=== PATIENT | female | born 1930 | race Caucasian/White ===

== ENCOUNTER 2017-02-02 18:34 | Inpatient (IN) | payer MEDICARE, OTHER ==
[~2017-02-02] VITALS: Ht 160 cm; Wt 62.8 kg
[~2017-02-02 18:34] MED LIST: ASPI-664 PO; CLON-379 PO; HYDR-3671 PO; LORA0.5T PO; METF500T4 PO
[2017-02-02] MEDS ORDERED: SODIUM CHLORIDE 0.9% 1L BAG IV* STA (18:58)
[2017-02-02] MEDS ORDERED: CEFEPIME 2GM/50 ML (PMX) 50 ML IVPB STA (18:58)
[2017-02-02] MEDS ORDERED: VANCOMYCIN 1 GM (PMX) 250 ML IVPB ONE (19:00)
[2017-02-02] MEDS ORDERED: ACETAMINOPHEN 325 MG TAB PO ONE (19:00)
[2017-02-02 19:29] LABS: ADD SCAN DIFF NO
[2017-02-02 19:30] LABS: BASOPHILS % 0.2 % (0.0-2.0); EOSINOPHILS % 0.1 % (0.0-7.0); HEMATOCRIT 38.6 % (37.0-47.0); HEMOGLOBIN 13.1 g/dl (12.0-16.0); LYMPHOCYTES % 29.2 % (15.0-51.0); MEAN CORPUSCULAR HEMOGLOBIN 29.2 pg (29.0-33.0); MEAN CORPUSCULAR HGB CONC 33.9 g/dl (32.0-37.0); MONOCYTES % 7.5 % (0.0-11.0); NEUTROPHIL # 8.6 10^3/ul (1.6-7.5); NEUTROPHILS % 62.5 % (39.0-77.0); PLATELET COUNT 346 10^3/UL (140-415); RED BLOOD COUNT 4.49 10^6/ul (4.20-5.40); RED CELL DISTRIBUTION WIDTH 13.1 % (11.5-14.5); WHITE BLOOD COUNT 13.7 10^3/ul (4.8-10.8)
[2017-02-02 19:44] LABS: ALBUMIN 4.1 g/dl (3.3-4.9)
[2017-02-02 19:45] LABS: CHLORIDE 95 mmol/L (97-110); POTASSIUM 3.3 mmol/L (3.5-5.1); SODIUM 136 mmol/L (135-144)
[2017-02-02 19:46] LABS: INR 0.96; PROTIME 12.8 Sec (12.2-14.2)
[2017-02-02 19:47] LABS: ANION GAP 17 (8-16); BILIRUBIN,INDIRECT 0.3 mg/dl (0-1.1); BILIRUBIN,TOTAL 0.3 mg/dl (0.2-1.3); CARBON DIOXIDE 27 mmol/L (21-31); CREATININE 1.02 mg/dl (0.44-1.00); PARTIAL THROMBOPLASTIN TIME 33.3 Sec (25.0-35.0)
[2017-02-02 19:48] LABS: ALANINE AMINOTRANSFERASE 21 IU/L (13-69); ALBUMIN/GLOBULIN RATIO 0.97; ALKALINE PHOSPHATASE 60 IU/L (42-121); ASPARTATE AMINO TRANSFERASE 17 IU/L (15-46); BLOOD UREA NITROGEN 19 mg/dl (7-20); CALCIUM 9.9 mg/dl (8.4-10.2); GLUCOSE 147 mg/dl (70-220); TOTAL PROTEIN 8.3 g/dl (6.1-8.1)
[2017-02-02] MEDS ORDERED: HYDR100T7 PO (19:49)
[2017-02-02] MEDS ORDERED: METF-480 PO (19:49)
[2017-02-02] MEDS ORDERED: AMLO-147 PO (19:49)
[2017-02-02] MEDS ORDERED: DEXL60CA2 PO (19:50)
[2017-02-02] MEDS ORDERED: VALS320T11 PO (19:50)
--- NOTE | 2017-02-02 19:55 | RADRPT ---
PROCEDURE: XR Chest. CLINICAL INDICATION: Possible sepsis. TECHNIQUE: Single frontal view of the chest. COMPARISON: 01/24/2015. FINDINGS: Cardiomegaly with atherosclerotic calcifications in the thoracic aorta. Hypoinflated lungs accentua te pulmonary vascular markings. Mild pulmonary vascular congestion. The lungs are otherwise clear. No signs of pleural fluid or pneumothorax are seen. The osseous structures and soft tissues are unr emarkable. IMPRESSION: Mild pulmonary vascular congestion. RPTAT: [facility] Physician Ekaterina Date Time Electronically viewed and signed by Physician Ekaterina on 02/02/2017 19:55 RS/
[2017-02-02 19:59] LABS: TROPONIN-I < 0.012 ng/ml (0.00-0.12)
--- NOTE | 2017-02-02 20:59 | RADRPT ---
PROCEDURE: CT Abdomen and Pelvis without contrast. CLINICAL INDICATION: Abdominal pain, fever TECHNIQUE: CT scan of the abdomen and pelvis without contrast was performed on a multidetector hig h-resolution CT scanner. The patient was scanned without intravenous contrast. Coronal and sagittal reformatted images were obtained from the axial source images. Images were reviewed on a high-resol [employer] PACS workstation. The total exam CTDI equals 9.39 mGy and the total exam DLP equals 464.11 mGy -cm. One or more the following dose reduction techniques were utilized: Automated exposure control, adjus tment of the mA/ or kV according to patient's size, or use of iterative reconstruction technique. COMPARISON: None. FINDINGS: CT abdomen: Linear atelectasis/fibrosis at lung bases. Mild cardiomegaly. Calcification in thoracic aorta. Pne umobilia likely secondary to previous intervention. Mild scalloping of the liver margin suggestive o f cirrhosis. The spleen is normal in size and homogeneous in density. The stomach is partially col lapsed, but is grossly unremarkable. Atrophic changes in the pancreas. Pneumobilia in the extrahepa tic bile duct. No gallbladder is seen. The adrenal glands are symmetric and normal. The kidneys ar e symmetrically unremarkable. No renal calculus or obstructive uropathy or mass lesion is seen. The aorta is of normal caliber. Aortic vascular calcifications are present. Calcification in superi or mesenteric, bilateral renal and iliac and femoral arteries There is no retroperitoneal lymphadeno prieto. The deep hepatis region is clear. The bowel and mesentery, as visualized, are unremarkable . CT pelvis: The small bowel loops situated within the pelvis are unremarkable. Vascular calcifications in the u terus. The pelvic sidewalls and inguinal regions are clear. The sigmoid colon and rectum are unrema rkable. No mass, lymphadenopathy, or free fluid is seen. No acute inflammation is seen. The surrounding osseous structures are remarkable for degenerative spondylosis of the spine. Spinal stenosis in thoracolumbar spine. Diffuse osteopenia. Degenerative changes at sacroiliac joints. Co mpression fracture apparent L1 vertebral body with loss of approximate 1/3 height of the anterior as pect of vertebral body and Schmorl's node in the superior vertebral body. Additional smaller Schmorl 's nodes are seen in the lumbar spine. IMPRESSION: Pneumobilia likely secondary to previous intervention. Suggestive of cirrhosis. Mild cardiomegaly. Atherosclerosis. Please see above. RPTAT: HJES .Lenin Egan MD, Date Time Electronically viewed and signed by .Lenin Egan MD, on 02/02/2017 20:59 .S/
[2017-02-02] MEDS ORDERED: ACETAMINOPHEN 325 MG TAB PO PRN (21:30)
[2017-02-02] MEDS ORDERED: ONDANSETRON 4 MG INJ IV PRN (21:30)
[2017-02-02 21:45] LABS: ADD UMIC NO; URINE BILIRUBIN (Dip) NEGATIVE (NEGATIVE); URINE BLOOD (Dip) NEGATIVE (NEGATIVE); URINE COLOR LT. YELLOW (YELLOW); URINE GLUCOSE (Dip) NEGATIVE (NEGATIVE); URINE KETONES (Dip) NEGATIVE (NEGATIVE); URINE LEUKOCYTE ESTERASE (Dip) NEGATIVE (NEGATIVE); URINE NITRITE (Dip) NEGATIVE (NEGATIVE); URINE TOTAL PROTEIN (Dip) NEGATIVE (NEGATIVE); URINE UROBILINOGEN (Dip) 0.2 E.U./dL (0.1-1.0)
--- NOTE | 2017-02-02 21:51 | ERA ---
ER Documentation Chief Complaint Date/Time DATE: 02/02/17 TIME: 21:46 Chief Complaint fever, chest pain, sob, n/v and luq abd pain since yesterday HPI Patient is a 86-year-old female with hypertension and diabetes who presents with fever and abdominal pain. She has right upper and right lower quadrant abdominal pain which started last night. She has vomiting. She has a history of cholecystectomy. She has had no treatment as of yet. Upon review of old medical records this is the patient's sixth visit to the ER since 2010. She does have a primary doctor. ROS All systems reviewed and are negative except as per history of present illness. Medications Home Meds Reported Medications Dexlansoprazole (Dexilant) 60 Mg Cap., 60 MG PO DAILY, #30 CAP 02/02/17 Valsartan* (Diovan*) 320 Mg Tablet, 320 MG PO DAILY, TAB 02/02/17 Amlodipine Besylate* (Amlodipine Besylate*) 10 Mg Tablet, 10 MG PO DAILY, #30 TAB 02/02/17 Metformin* (Glucophage*) 850 Mg Tablet, 850 MG PO WITH BREAKFAST DINNE, #60 TAB 02/02/17 Hydralazine Hcl* (Hydralazine Hcl*) 100 Mg Tablet, 100 MG PO TID, #90 TAB 02/02/17 Lorazepam* (Lorazepam*) 0.5 Mg Tablet, 0.5 MG PO DAILY Y for ANXIETY, TAB 01/29/15 Clonidine Hcl* (Clonidine Hcl*) 0.1 Mg Tab, 0.1 MG PO BID, TAB 01/24/15 Aspirin (Low Dose Aspirin) 81 Mg Tablet., 81 MG PO DAILY 01/24/15 Discontinued Reported Medications Hydralazine Hcl* (Hydralazine Hcl*) 25 Mg Tab, 25 MG PO TID, TAB 01/24/15 Metformin* (Glucophage*) 500 Mg Tab, 850 MG PO BID WITH MEALS, TAB 01/24/15 Allergies Allergies: Coded Allergies: No Known Drug Allergies (Verified Allergy, Mild, 02/02/17) PMhx/Soc History of Surgery: Yes (GALL BLADDER REMOVE) Anesthesia Reaction: No Hx Neurological Disorder: No Hx Respiratory Disorders: No Hx Cardiac Disorders: Yes (HTN) Hx Psychiatric Problems: No Hx Miscellaneous Medical Probl: Yes (DM) Hx Alcohol Use: No Hx Substance Use: No Hx Tobacco Use: No Smoking Status: Never smoker FmHx Family History: No diabetes Physical Exam Vitals Vital Signs Date Time Temp Pulse Resp B/P Pulse Ox O2 Delivery O2 Flow Rate FiO2 02/02/17 21:00 97.6 73 20 189/62 100 Room Air 02/02/17 18:43 101.3 101 20 145/65 98 Physical Exam Const: Moderate distress Head: Atraumatic Eyes: Normal Conjunctiva ENT: Normal External Ears, Nose and Mouth. Neck: Full range of motion..~ No meningismus. Resp: Clear to auscultation bilaterally Cardio: Tachycardic rate without murmur Abd: Soft, right upper and right lower quadrant tenderness to palpation without guarding Skin: No petechiae or rashes Back: No midline or flank tenderness Ext: No cyanosis, or edema Neur: Awake and alert Psych: Normal Mood and Affect Result Diagram: 02/02/17190202/02/171902 Results 24 hrs Laboratory Tests Test 02/02/17 19:03 02/02/17 21:35 White Blood Count 13.710^3/ul Red Blood Count 4.4910^6/ul Hemoglobin 13.1g/dl Hematocrit 38.6% Mean Corpuscular Volume 86.0fl Mean Corpuscular Hemoglobin 29.2pg Mean Corpuscular Hemoglobin Concent 33.9g/dl Red Cell Distribution Width 13.1% Platelet Count 98175^3/UL Mean Platelet Volume 11.0fl Neutrophils % 62.5% Lymphocytes % 29.2% Monocytes % 7.5% Eosinophils % 0.1% Basophils % 0.2% Nucleated Red Blood Cells % 0.0/100WBC Neutrophils # 8.610^3/ul Lymphocytes # 4.010^3/ul Monocytes # 1.010^3/ul Eosinophils # 0.010^3/ul Basophils # 0.010^3/ul Nucleated Red Blood Cells # 0.010^3/ul Prothrombin Time 12.8Sec Prothrombin Time Ratio 1.0 INR International Normalized Ratio 0.96 Activated Partial Thromboplast Time 33.3Sec Sodium Level 136mmol/L Potassium Level 3.3mmol/L Chloride Level 95mmol/L Carbon Dioxide Level 27mmol/L Anion Gap 17 Blood Urea Nitrogen 19mg/dl Creatinine 1.02mg/dl Glucose Level 147mg/dl Lactic Acid Level 1.1mmol/L Calcium Level 9.9mg/dl Total Bilirubin 0.3mg/dl Direct Bilirubin 0.00mg/dl Indirect Bilirubin 0.3mg/dl Aspartate Amino Transf (AST/SGOT) 17IU/L Alanine Aminotransferase (ALT/SGPT) 21IU/L Alkaline Phosphatase 60IU/L Troponin I < 0.012ng/ml Total Protein 8.3g/dl Albumin 4.1g/dl Globulin 4.20g/dl Albumin/Globulin Ratio 0.97 Urine Color LT. YELLOW Urine Clarity CLEAR Urine pH 6.0 Urine Specific [place] <=1.005 Urine Ketones NEGATIVE Urine Nitrite NEGATIVE Urine Bilirubin NEGATIVE Urine Urobilinogen 0.2 E.U./dL Urine Leukocyte Esterase NEGATIVE Urine Hemoglobin NEGATIVE Urine Glucose NEGATIVE% Urine Total Protein NEGATIVE Current Medications Medications (Trade) Dose Ordered Sig/Mari Route PRN Reason Start Time Stop Time Status Last Admin Dose Admin Sodium Chloride 1970 ml 1,970 ml BOLUS OVER 2 HOURS STAT IV* 02/02/17 18:58 02/02/17 18:59 DC 02/02/17 19:29 Cefepime HCl 50 ml @ 100 mls/hr ONCE STAT IVPB 02/02/17 18:58 02/02/17 19:27 DC 02/02/17 19:29 Vancomycin HCl (Vancocin) 250 ml @ 125 mls/hr ONCE ONCE IVPB 02/02/17 19:00 02/02/17 20:59 DC 02/02/17 20:52 Acetaminophen (Tylenol Tab) 650 mg ONCE ONCE PO 02/02/17 19:00 02/02/17 19:01 DC 02/02/17 19:29 Ondansetron HCl (Zofran Inj) 4 mg BRIDGE ORDER PRN IV NAUSEA AND/OR VOMITING 02/02/17 21:30 02/03/17 21:29 Acetaminophen (Tylenol Tab) 650 mg ER BRIDGE PRN PO MILD PAIN/FEVER 02/02/17 21:30 02/03/17 21:29 Procedures/MDM PROCEDURE: CT Abdomen and Pelvis without contrast. CLINICAL INDICATION: Abdominal pain, fever TECHNIQUE: CT scan of the abdomen and pelvis without contrast was performed on a multidetector high-resolution CT scanner. The patient was scanned without intravenous contrast. Coronal and sagittal reformatted images were obtained from the axial source images. Images were reviewed on a high-resolution PACS workstation. The total exam CTDI equals 9.39 mGy and the total exam DLP equals 464.11 mGy-cm. One or more the following dose reduction techniques were utilized: Automated exposure control, adjustment of the mA/ or kV according to patient's size, or use of iterative reconstruction technique. COMPARISON: None. FINDINGS: CT abdomen: Linear atelectasis/fibrosis at lung bases. Mild cardiomegaly. Calcification in thoracic aorta. Pneumobilia likely secondary to previous intervention. Mild scalloping of the liver margin suggestive of cirrhosis. The spleen is normal in size and homogeneous in density. The stomach is partially collapsed, but is grossly unremarkable. Atrophic changes in the pancreas. Pneumobilia in the extrahepatic bile duct. No gallbladder is seen. The adrenal glands are symmetric and normal. The kidneys are symmetrically unremarkable. No renal calculus or obstructive uropathy or mass lesion is seen. The aorta is of normal caliber. Aortic vascular calcifications are present. Calcification in superior mesenteric, bilateral renal and iliac and femoral arteries There is no retroperitoneal lymphadenopathy. The deep hepatis region is clear. The bowel and mesentery, as visualized, are unremarkable. CT pelvis: The small bowel loops situated within the pelvis are unremarkable. Vascular calcifications in the uterus. The pelvic sidewalls and inguinal regions are clear. The sigmoid colon and rectum are unremarkable. No mass, lymphadenopathy , or free fluid is seen. No acute inflammation is seen. The surrounding osseous structures are remarkable for degenerative spondylosis of the spine. Spinal stenosis in thoracolumbar spine. Diffuse osteopenia. Degenerative changes at sacroiliac joints. Compression fracture apparent L1 vertebral body with loss of approximate 1/3 height of the anterior aspect of vertebral body and Schmorl's node in the superior vertebral body. Additional smaller Schmorl's nodes are seen in the lumbar spine. IMPRESSION: Pneumobilia likely secondary to previous intervention. Suggestive of cirrhosis. Mild cardiomegaly. Atherosclerosis. Please see above. RPTAT: HJES .Lenin Egan MD, MD Date Time Electronically viewed and signed by .Lenin Egan MD, on 02/02/2017 20:59 PROCEDURE: XR Chest. CLINICAL INDICATION: Possible sepsis. TECHNIQUE: Single frontal view of the chest. COMPARISON: 01/24/2015. FINDINGS: Cardiomegaly with atherosclerotic calcifications in the thoracic aorta. Hypoinflated lungs accentuate pulmonary vascular markings. Mild pulmonary vascular congestion. The lungs are otherwise clear. No signs of pleural fluid or pneumothorax are seen. The osseous structures and soft tissues are unremarkable. IMPRESSION: Mild pulmonary vascular congestion. RPTAT: [facility] Physician Ekaterina Date Time Electronically viewed and signed by Physician Ekaterina on 02/02/2017 19:55 EKG read by me: Rate/Rhythm: First-degree AV block at a rate of 92 Intervals: Prolonged [place] interval Impression: First-degree AV block Admit MDM: Patient's infectious symptoms have not stabilized and the patient is at risk of rapid decompensation. The patient will be admitted for careful hydration, antibiotic therapy, and infectious source control. Severe Sepsis criteria: Infectious source: Unclear source at this time End organ damage indicated by: No end organ damage at this time Sepsis Management: Time of recognition of sepsis: 1903 Within 3 hours of recognition: Blood cultures x 2 before broad-spectrum antibiotics: Yes 30 ml/kg NS bolus Completed Initial lactate normal Repeat lactate pending Time of recognition of septic shock: No septic shock Septic Shock Assessment: Any lactic acid > 4.0 No Persistent hypotension (SBP < 90 or 40 mmHg drop, MAP < 65) despite 30 mL/kg IV fluid bolus No Volume Re-assessment for Septic Shock (post 30 ml/kg bolus): No septic shock at this time Persistent Hypotension Treatment: Comfort care No Central line Not Required Vasopressor started Not required I considered further perfusion assessment with CVP measurement, SCVO2, bedside ultrasound volume assessment, passive leg raise, trial of further fluid bolus. And proceeded with 30 ml/kg fluid bolus of NSS, broad spectrum antibiotics, and admission. Accepting Care Team Current data and ongoing care discussed. Admitting Physician: Dr. Ferguson from the panel team for admission Diesel Engine Engineer(s): None Outstanding Data: Culture results and repeat lactic acid Critical Care: Critical care time 35 minutes excluding all billable procedures Emergent fluid management while maintaining close respiratory support. Provision of immediate and broad-spectrum antibiotic therapy. Simultaneous assessment for possible sources in order to direct targeted therapy. Consideration for invasive and chemical support to prevent cardiopulmonary collapse. Departure Diagnosis: Primary Impression: Shortness of breath Additional Impressions: Abdominal pain Qualified Code: R10.84 - Generalized abdominal pain Fever Qualified Code: R50.9 - Fever, unspecified fever cause Leukocytosis Qualified Code: D72.829 - Leukocytosis, unspecified type Sepsis Qualified Code: A41.9 - Sepsis, due to unspecified organism Condition: NORAH Cavazos MD February 02, 2017 21:51
[2017-02-02] MEDS ORDERED: hydrALAzine 20 MG INJ IV ONE (22:00)
[2017-02-02 23:00] VITALS: TEMP 97.6
[2017-02-03 00:59] VITALS: Ht 160 cm; Wt 62.8 kg
[2017-02-03] MEDS ORDERED: DEXTROSE 50% 50 ML SYRINGE IV PRN ×2 (01:00)
[2017-02-03] MEDS ORDERED: LORAZEPAM 0.5 MG TAB PO PRN (01:00)
[2017-02-03] MEDS ORDERED: LORAZEPAM 2 MG INJ IV PRN (01:00)
[2017-02-03] MEDS ORDERED: GLUCOSE GEL 15 GRAM TUBE BUCCAL PRN (01:00)
[2017-02-03] MEDS ORDERED: hydrALAzine 20 MG INJ IV PRN (01:00)
[2017-02-03] MEDS ORDERED: ONDANSETRON 4 MG INJ IV PRN (01:00)
[2017-02-03] MEDS ORDERED: ACETAMINOPHEN 325 MG TAB PO PRN (01:00)
[2017-02-03] MEDS ORDERED: GLUCOSE GEL 15 GRAM TUBE PO PRN ×2 (01:00)
[2017-02-03] MEDS ORDERED: GLUCAGON 1 MG INJ IM PRN (01:00)
[2017-02-03] MEDS: LEVOFLOXACIN 500MG/D5W (PMX) 100 ML IVPB SCH (01:20)
[2017-02-03] MEDS: ACCU-CHEK XX SCH (01:25)
[2017-02-03 01:34] VITALS: BP 204/81; PULSE 97; RESP 18
[2017-02-03] MEDS ORDERED: ACCU-CHEK XX SCH (02:00)
[2017-02-03 06:10] VITALS: BP 145/63; PULSE 78
[2017-02-03 06:30] LABS: ADD SCAN DIFF NO
[2017-02-03 06:36] LABS: BASOPHILS % 0.2 % (0.0-2.0); EOSINOPHILS % 0.1 % (0.0-7.0); HEMATOCRIT 37.1 % (37.0-47.0); HEMOGLOBIN 12.2 g/dl (12.0-16.0); LYMPHOCYTES # 1.3 10^3/ul (0.8-2.9); MEAN CORPUSCULAR HEMOGLOBIN 29.3 pg (29.0-33.0); MEAN CORPUSCULAR HGB CONC 32.9 g/dl (32.0-37.0); MEAN PLATELET VOLUME 11.1 fl (7.4-10.4); MONOCYTE # 0.5 10^3/ul (0.3-0.9); MONOCYTES % 5.4 % (0.0-11.0); NEUTROPHIL # 6.7 10^3/ul (1.6-7.5); NEUTROPHILS % 78.9 % (39.0-77.0); PLATELET COUNT 307 10^3/UL (140-415); RED BLOOD COUNT 4.17 10^6/ul (4.20-5.40); RED CELL DISTRIBUTION WIDTH 13.2 % (11.5-14.5); WHITE BLOOD COUNT 8.5 10^3/ul (4.8-10.8)
[2017-02-03 06:54] LABS: ALBUMIN 3.6 g/dl (3.3-4.9); BILIRUBIN,INDIRECT 0.4 mg/dl (0-1.1); BILIRUBIN,TOTAL 0.4 mg/dl (0.2-1.3); CALCIUM 9.1 mg/dl (8.4-10.2); CREATININE 0.92 mg/dl (0.44-1.00); MAGNESIUM 1.7 mg/dl (1.7-2.5); POTASSIUM 3.4 mmol/L (3.5-5.1); TOTAL PROTEIN 7.2 g/dl (6.1-8.1)
[2017-02-03 07:59] VITALS: BP 147/67; RESP 18
[2017-02-03] MEDS: FAMOTIDINE 20 MG TAB PO SCH (09:16)
[2017-02-03] MEDS: AMLODIPINE 10 MG TAB PO SCH (09:16)
[2017-02-03] MEDS: VALSARTAN 160 MG TAB PO SCH (09:16)
[2017-02-03] MEDS: ASPIRIN (EC) 81 MG TAB PO SCH (09:17)
[2017-02-03] MEDS: INSULIN ASPART [NOVOLOG] 3 ML PEN SC SCH ×4 (09:18→20:32)
[2017-02-03] MEDS: INSULIN GLARGINE [LANtus] 3 ML PEN SC SCH (09:20)
--- NOTE | 2017-02-03 12:12 | HP ---
Date/Time of Note Date/Time of Note DATE: 02/03/17 TIME: 12:05 Assessment/Plan VTE Prophylaxis VTE Prophylaxis Intervention: SCD's Lines/Catheters IV Catheter Type (from Nrsg): Saline Lock Assessment/Plan Assessment/Plan IMPRESSION 1. Abd Pain 2. SIRS, with no clear source of infection 3. HTN 4. DM 5. Hx of cholangitis and Choledocholithiasis 6. s/p cholecystectomy PLAN broad spectrum abx f/u blood and urine culture results pain mgmt cont home meds with adjustment as needed Insulin while in-house HPI/ROS Admit Date/Time Admit Date/Time February 02, 2017 at 21:07 Hx of Present Illness Patient is an 86-year-old female with hx of HTN, DM, DL, cholangitis/ choledocholithiasis, cholecystectomy who presents to ER c/o abdominal pain. Pain is mainly localized in RUQ area. she also reported fever and nausea. In ER , she had a temp of 101.8 with WBC of almost 14,000. CXR showed mild pulm vascular congestion. CT a/p showed Pneumobilia likely secondary to previous intervention, and findings uggestive of cirrhosis. Mild cardiomegaly. UA was neg for UTI. . PMH/Family/Social Social History Smoking Status: Never smoker Exam/Review of Systems Vital Signs Vitals Vital Signs Date Time Temp Pulse Resp B/P Pulse Ox O2 Delivery O2 Flow Rate FiO2 02/03/17 07:59 97.9 70 18 147/67 97 02/03/17 01:34 Room Air Intake and Output 02/02/17 02/02/17 02/03/17 15:00 23:00 07:00 Intake Total 220 ml Balance 220 ml Exam Exam General: The patient is well-developed, Not in acute distress. HEENT: Atraumatic, normocephalic. The pupils are equal and round . Neck: Supple with full range of motion. Chest: Normal expansion of the thorax during inspiration Lungs: Clear to auscultation bilaterally Heart: Normal S1-S2, Regular rhythm and rate. Abdomen: Soft , nontender, nondistended , bowel sounds are present. Extremities: Normal to inspection, no edema no cyanosis Neurologic: Normal mental status,The patient is awake Labs Result Diagram: 02/03/1752902/03/17529 Medications Medications Current Medications Levofloxacin/ Dextrose (Levaquin 500mg/ D5W 100 ml (Pmx)) 100 ml @ 100 mls/hr Q24H IVPB Last administered on 02/03/17 01:20; Admin Dose 100 MLS/HR; Start at 01:00 Insulin Glargine (Lantus) 10 unit QAM SC Last administered on 02/03/17 09:20; Admin Dose 10 UNIT; Start 02/03/17 at 09:00 Diagnostic Test (Pha) (Accu-Chek) 1 ea 02 XX ; Start 02/03/17 at 02:00 Ondansetron HCl (Zofran Inj) 4 mg Q6H PRN IV NAUSEA AND/OR VOMITING; Start 09/10 at 01:00 Acetaminophen (Tylenol Tab) 650 mg Q6H PRN PO PAIN AND OR ELEVATED TEMP; Start 02/03/17 at 01:00 Hydralazine HCl (Apresoline) 10 mg Q4H PRN IV ELEVATED SYSTOLIC BP; Start 02/03 at 01:00 Lorazepam (Ativan) 0.5 mg Q4H PRN IV ANXIETY; Start 02/03/17 at 01:00 Famotidine (Pepcid) 20 mg DAILY PO Last administered on 02/03/17 09:16; Admin Dose 20 MG; Start 02/03/17 at 09:00 Amlodipine Besylate (Norvasc) 10 mg DAILY PO Last administered on 02/03/17 09: 16; Admin Dose 10 MG; Start 02/03/17 at 09:00 Aspirin (Halfprin) 81 mg DAILY PO Last administered on 02/03/17 09:17; Admin Dose 81 MG; Start 02/03/17 at 09:00 Clonidine (Catapres) 0.1 mg BID PO Last administered on 02/03/17 09:17; Admin Dose 0.1 MG; Start 02/03/17 at 01:00 Hydralazine HCl (Apresoline) 100 mg TID PO Last administered on 02/03/17 09:17 ; Admin Dose 100 MG; Start 02/03/17 at 01:15 Lorazepam (Ativan) 0.5 mg DAILY PRN PO ANXIETY; Start 02/03/17 at 01:00 Valsartan (Diovan) 320 mg DAILY PO Last administered on 02/03/17 09:16; Admin Dose 320 MG; Start 02/03/17 at 09:00 Miscellaneous Information 1 ea NOTE XX ; Start 02/03/17 at 01:00 Glucose (Glutose) 15 gm Q15M PRN PO DECREASED GLUCOSE; Start 02/03/17 at 01:00 Glucose (Glutose) 22.5 gm Q15M PRN PO DECREASED GLUCOSE; Start 02/03/17 at 01: 00 Dextrose (D50w Syringe) 25 ml Q15M PRN IV DECREASED GLUCOSE; Start 02/03/17 at 01:00 Dextrose (D50w Syringe) 50 ml Q15M PRN IV DECREASED GLUCOSE; Start 02/03/17 at 01:00 Glucagon (Glucagen) 1 mg Q15M PRN IM DECREASED GLUCOSE; Start 02/03/17 at 01:00 Glucose (Glutose) 15 gm Q15M PRN BUCCAL DECREASED GLUCOSE; Start 02/03/17 at 01 :00 ARMANDO CASTRO MD February 03, 2017 12:12
[2017-02-03] MEDS ORDERED: POTASSIUM CHLORIDE (SR) 20 MEQ TAB PO STA (12:58)
--- NOTE | 2017-02-03 13:02 | PN ---
Date/Time of Note Date/Time of Note DATE: 02/03/17 TIME: 12:58 Assessment/Plan VTE Prophylaxis VTE Prophylaxis Intervention: SCD's Lines/Catheters IV Catheter Type (from Nrsg): Saline Lock Assessment/Plan Chief Complaint/Hosp Course Assessment/Plan 1. Abd Pain 2. SIRS, with no clear source of infection With negative urine culture, continue IV antibiotics 3. HTN Continue home medication 4. DM With hemoglobin of 6.4, continue metformin, insulin sliding scale, low-carb diet 5. Hx of cholangitis and Choledocholithiasis 6. s/p cholecystectomy PLAN f/u blood and urine culture results pain mgmt cont home meds with adjustment as needed Insulin while in-house We will continue monitor patient closely for recommendation management treatment as clinical course Problems: Subjective 24 Hr Interval Summary Free Text/Dictation Patient continues to complain of having generalized weakness Denies of any chest pain or shortness of breath Minimal p.o. intake Exam/Review of Systems Vital Signs Vitals Vital Signs Date Time Temp Pulse Resp B/P Pulse Ox O2 Delivery O2 Flow Rate FiO2 02/03/17 07:59 97.9 70 18 147/67 97 02/03/17 01:34 Room Air Intake and Output 02/02/17 02/02/17 02/03/17 15:00 23:00 07:00 Intake Total 220 ml Balance 220 ml Exam General: The patient is well-developed, Not in acute distress. HEENT: Atraumatic, normocephalic. The pupils are equal and round . Neck: Supple with full range of motion. Chest: Normal expansion of the thorax during inspiration Lungs: Clear to auscultation bilaterally Heart: Normal S1-S2, Regular rhythm and rate. Abdomen: Soft , nontender, nondistended , bowel sounds are present. Extremities: Normal to inspection, no edema no cyanosis Neurologic: Normal mental status,The patient is awake, aler Results Result Diagram: 02/03/17 0530 02/03/17 0530 Results 24 hrs Laboratory Tests Test 02/02/17 19:03 02/02/17 21:15 02/02/17 21:35 02/02/17 22:50 White Blood Count 13.7 #H Red Blood Count 4.49 Hemoglobin 13.1 Hematocrit 38.6 Mean Corpuscular Volume 86.0 Mean Corpuscular Hemoglobin 29.2 Mean Corpuscular Hemoglobin Concent 33.9 Red Cell Distribution Width 13.1 Platelet Count 346 Mean Platelet Volume 11.0 H Neutrophils % 62.5 Lymphocytes % 29.2 Monocytes % 7.5 Eosinophils % 0.1 Basophils % 0.2 Nucleated Red Blood Cells % 0.0 Neutrophils # 8.6 H Lymphocytes # 4.0 H Monocytes # 1.0 H Eosinophils # 0.0 Basophils # 0.0 Nucleated Red Blood Cells # 0.0 Prothrombin Time 12.8 Prothrombin Time Ratio 1.0 INR International Normalized Ratio 0.96 Activated Partial Thromboplast Time 33.3 Sodium Level 136 Potassium Level 3.3 L Chloride Level 95 L Carbon Dioxide Level 27 Anion Gap 17 H Blood Urea Nitrogen 19 Creatinine 1.02 H Glucose Level 147 Lactic Acid Level 1.1 0.7 0.8 Calcium Level 9.9 Total Bilirubin 0.3 Direct Bilirubin 0.00 Indirect Bilirubin 0.3 Aspartate Amino Transf (AST/SGOT) 17 Alanine Aminotransferase (ALT/SGPT) 21 Alkaline Phosphatase 60 Troponin I < 0.012 Total Protein 8.3 H Albumin 4.1 Globulin 4.20 H Albumin/Globulin Ratio 0.97 Urine Color LT. YELLOW Urine Clarity CLEAR Urine pH 6.0 Urine Specific [place] <=1.005 L Urine Ketones NEGATIVE Urine Nitrite NEGATIVE Urine Bilirubin NEGATIVE Urine Urobilinogen 0.2 E.U./dL Urine Leukocyte Esterase NEGATIVE Urine Hemoglobin NEGATIVE Urine Glucose NEGATIVE Urine Total Protein NEGATIVE Test 02/03/17 05:30 02/03/17 08:17 02/03/17 09:05 02/03/17 11:48 White Blood Count 8.5 # Red Blood Count 4.17 L Hemoglobin 12.2 Hematocrit 37.1 Mean Corpuscular Volume 89.0 Mean Corpuscular Hemoglobin 29.3 Mean Corpuscular Hemoglobin Concent 32.9 Red Cell Distribution Width 13.2 Platelet Count 307 Mean Platelet Volume 11.1 H Neutrophils % 78.9 H Lymphocytes % 15.0 Monocytes % 5.4 Eosinophils % 0.1 Basophils % 0.2 Nucleated Red Blood Cells % 0.0 Neutrophils # 6.7 Lymphocytes # 1.3 Monocytes # 0.5 Eosinophils # 0.0 Basophils # 0.0 Nucleated Red Blood Cells # 0.0 Sodium Level 137 Potassium Level 3.4 L Chloride Level 104 Carbon Dioxide Level 27 Anion Gap 9 # Blood Urea Nitrogen 16 Creatinine 0.92 Glucose Level 150 Hemoglobin A1c 6.4 H Calcium Level 9.1 Phosphorus Level 3.0 Magnesium Level 1.7 Total Bilirubin 0.4 Direct Bilirubin 0.00 Indirect Bilirubin 0.4 Aspartate Amino Transf (AST/SGOT) 17 Alanine Aminotransferase (ALT/SGPT) 24 Alkaline Phosphatase 53 Total Protein 7.2 # Albumin 3.6 Globulin 3.60 H Albumin/Globulin Ratio 1.00 Bedside Glucose 141 197 119 Medications Medications Current Medications Levofloxacin/ Dextrose (Levaquin 500mg/ D5W 100 ml (Pmx)) 100 ml @ 100 mls/hr Q24H IVPB Last administered on 02/03/17 01:20; Admin Dose 100 MLS/HR; Start at 01:00 Insulin Glargine (Lantus) 10 unit QAM SC Last administered on 02/03/17 09:20; Admin Dose 10 UNIT; Start 02/03/17 at 09:00 Diagnostic Test (Pha) (Accu-Chek) 1 ea 02 XX ; Start 02/03/17 at 02:00 Ondansetron HCl (Zofran Inj) 4 mg Q6H PRN IV NAUSEA AND/OR VOMITING; Start 09/10 at 01:00 Acetaminophen (Tylenol Tab) 650 mg Q6H PRN PO PAIN AND OR ELEVATED TEMP; Start 02/03/17 at 01:00 Hydralazine HCl (Apresoline) 10 mg Q4H PRN IV ELEVATED SYSTOLIC BP; Start 02/03 at 01:00 Lorazepam (Ativan) 0.5 mg Q4H PRN IV ANXIETY; Start 02/03/17 at 01:00 Famotidine (Pepcid) 20 mg DAILY PO Last administered on 02/03/17 09:16; Admin Dose 20 MG; Start 02/03/17 at 09:00 Amlodipine Besylate (Norvasc) 10 mg DAILY PO Last administered on 02/03/17 09: 16; Admin Dose 10 MG; Start 02/03/17 at 09:00 Aspirin (Halfprin) 81 mg DAILY PO Last administered on 02/03/17 09:17; Admin Dose 81 MG; Start 02/03/17 at 09:00 Clonidine (Catapres) 0.1 mg BID PO Last administered on 02/03/17 09:17; Admin Dose 0.1 MG; Start 02/03/17 at 01:00 Hydralazine HCl (Apresoline) 100 mg TID PO Last administered on 02/03/17 09:17 ; Admin Dose 100 MG; Start 02/03/17 at 01:15 Lorazepam (Ativan) 0.5 mg DAILY PRN PO ANXIETY; Start 02/03/17 at 01:00 Valsartan (Diovan) 320 mg DAILY PO Last administered on 02/03/17 09:16; Admin Dose 320 MG; Start 02/03/17 at 09:00 Miscellaneous Information 1 ea NOTE XX ; Start 02/03/17 at 01:00 Glucose (Glutose) 15 gm Q15M PRN PO DECREASED GLUCOSE; Start 02/03/17 at 01:00 Glucose (Glutose) 22.5 gm Q15M PRN PO DECREASED GLUCOSE; Start 02/03/17 at 01: 00 Dextrose (D50w Syringe) 25 ml Q15M PRN IV DECREASED GLUCOSE; Start 02/03/17 at 01:00 Dextrose (D50w Syringe) 50 ml Q15M PRN IV DECREASED GLUCOSE; Start 02/03/17 at 01:00 Glucagon (Glucagen) 1 mg Q15M PRN IM DECREASED GLUCOSE; Start 02/03/17 at 01:00 Glucose (Glutose) 15 gm Q15M PRN BUCCAL DECREASED GLUCOSE; Start 02/03/17 at 01 :00 KENDRA GOINS MD February 03, 2017 13:02
[2017-02-03 13:19] VITALS: BP 110/51; PULSE 71
[2017-02-03] MEDS ORDERED: CEFTRIAXONE 1 GM/50 ML (PMX) 50 ML IVPB SCH (13:30)
[2017-02-03] MEDS: 1/2 NS + KCL 20 MEQ 1,000 ML IV SCH (14:40)
[2017-02-03] MEDS: metFORMIN 850 MG TAB PO SCH (17:42)
[2017-02-03 20:07] VITALS: BP 125/60; RESP 18
[2017-02-04] MEDS: ACCU-CHEK XX SCH (01:10)
[2017-02-04] MEDS: LEVOFLOXACIN 500MG/D5W (PMX) 100 ML IVPB SCH (01:23)
[2017-02-04] MEDS: 1/2 NS + KCL 20 MEQ 1,000 ML IV SCH ×2 (05:17→09:01)
[2017-02-04 07:05] LABS: ADD SCAN DIFF NO
[2017-02-04 07:13] LABS: BASOPHILS % 0.3 % (0.0-2.0); EOSINOPHILS # 0.1 10^3/ul (0.0-0.5); EOSINOPHILS % 2.1 % (0.0-7.0); HEMATOCRIT 36.3 % (37.0-47.0); HEMOGLOBIN 11.6 g/dl (12.0-16.0); LYMPHOCYTES # 1.7 10^3/ul (0.8-2.9); LYMPHOCYTES % 25.1 % (15.0-51.0); MEAN CORPUSCULAR HEMOGLOBIN 28.7 pg (29.0-33.0); MEAN CORPUSCULAR VOLUME 89.9 fl (82.0-101.0); MEAN PLATELET VOLUME 11.2 fl (7.4-10.4); MONOCYTE # 0.5 10^3/ul (0.3-0.9); NEUTROPHIL # 4.3 10^3/ul (1.6-7.5); NEUTROPHILS % 63.9 % (39.0-77.0); PLATELET COUNT 297 10^3/UL (140-415); RED BLOOD COUNT 4.04 10^6/ul (4.20-5.40); WHITE BLOOD COUNT 6.8 10^3/ul (4.8-10.8)
[2017-02-04 07:41] VITALS: BP 166/71; RESP 18
[2017-02-04 07:42] LABS: ALBUMIN 3.5 g/dl (3.3-4.9)
[2017-02-04 07:43] LABS: POTASSIUM 3.8 mmol/L (3.5-5.1)
[2017-02-04 07:45] LABS: BILIRUBIN,INDIRECT 0.1 mg/dl (0-1.1); BILIRUBIN,TOTAL 0.1 mg/dl (0.2-1.3); CREATININE 0.99 mg/dl (0.44-1.00)
[2017-02-04 07:46] LABS: ALBUMIN/GLOBULIN RATIO 0.94; CALCIUM 9.4 mg/dl (8.4-10.2); MAGNESIUM 1.7 mg/dl (1.7-2.5); TOTAL PROTEIN 7.2 g/dl (6.1-8.1)
[2017-02-04] MEDS: INSULIN ASPART [NOVOLOG] 3 ML PEN SC SCH ×2 (08:06→12:15)
[2017-02-04] MEDS: AMLODIPINE 10 MG TAB PO SCH (08:45)
[2017-02-04] MEDS: ASPIRIN (EC) 81 MG TAB PO SCH (08:45)
[2017-02-04] MEDS: VALSARTAN 160 MG TAB PO SCH (08:45)
[2017-02-04] MEDS: metFORMIN 850 MG TAB PO SCH (08:45)
[2017-02-04] MEDS: FAMOTIDINE 20 MG TAB PO SCH (08:46)
[2017-02-04] MEDS: INSULIN GLARGINE [LANtus] 3 ML PEN SC SCH (09:00)
--- NOTE | 2017-02-04 12:17 | PDOCDIS ---
Discharge Instructions CONDITION Patient Condition: Stable HOME CARE INSTRUCTIONS: Diet Instructions: Low Fat /Cholesterol ACTIVITY: Activity Restrictions: Slowly Increase Activity FOLLOW UP/APPOINTMENTS Appointments Please take your medicines. Please see your doctor in the clinic in 1 week. LENNIE COTTER February 04, 2017 12:16
[2017-02-04] MEDS ORDERED: LEVO250T9 PO (12:18)
--- NOTE | 2017-02-04 12:50 | DS ---
DATE OF ADMISSION: 02/02/2017 DATE OF DISCHARGE: 02/04/2017 An 86-year-old female originally admitted on 02/03/2017, being discharged on 02/04/2017. HOSPITAL COURSE: The patient came in with abdominal pain. She had a CT abdomen and pelvis performe d that showed some pneumobilia and there was also some suggestions of cirrhosis, but no other acute findings. The patient has a prior history of cholecystectomy, cholangitis and choledocholithiasis, but in any event, she was admitted. She had a fever as well. There was an unclear source of infecti on but she was started on antibiotics. Over the course of her hospital stay her white count remaine d normal. She had no fevers for the 24 hours that she was here. She was able to ambulate and tiffany ate a p.o. diet. Preliminary cultures were negative as well, and because the patient is clinically improved and her vital signs are stable, she will be discharged home today in improved condition. MEDICATIONS: She will be sent home on the following medications: 1. Levaquin 250 mg p.o. daily for 5 days. 2. Amlodipine 10 mg daily. 3. Aspirin 81 mg daily. 4. Clonidine 0.1 mg b.i.d. 5. Dexilant 60 mg daily. 6. Hydralazine 100 mg t.i.d. 7. Lorazepam 0.5 mg daily p.r.n. 8. Metformin 850 mg b.i.d. 9. Valsartan 320 mg inhalation. She is to follow up with her primary care doctor in the next 1 to 2 weeks. FINAL DIAGNOSES: 1. Mild systemic inflammatory response syndrome, unclear source, possibly secondary to pneumobilia versus mild upper respiratory infection. 2. Abdominal pain. Negative CT scan findings. 3. Essential hypertension. 4. Type 2 diabetes. A1c of 6.4. 5. History of cholangitis and choledocholithiasis, status post cholecystectomy in the past. Time spent discharging the patient was 45 minutes. Dictated By: LENNIE RESTREPO Conf#: [id number] DID#: [id number]
== END 2017-02-04 15:06 | disposition home or self-care (01) | DRG 153 ==
LOC: E/R 18:34 → MS2 21:07
PROVIDERS: ADMIT Internal Medicine; ATTEND Internal Medicine
DX: J06.9 Acute upper respiratory infection, unspecified (principal); R65.10 Systemic inflammatory response syndrome (SIRS) of non-infectious origin without acute organ dysfunction; K74.60 Unspecified cirrhosis of liver; E11.9 Type 2 diabetes mellitus without complications; R10.11 Right upper quadrant pain; I10 Essential (primary) hypertension; Z90.49 Acquired absence of other specified parts of digestive tract
CPT/HCPCS: 36415; 71010; 74176; 80053; 81003; 82962; 83036; 83605; 83735; 84100; 84484; 85025; 85610; 85730; 87040; 87086; 93005; 96374; 96375; J0692; J0696; J1815; J1956; J3370; J3480; J7030

== ENCOUNTER 2017-11-03 22:12 | Inpatient (IN) | END 2017-11-07 15:03 | disposition home or self-care (01) | DRG 247 ==

== ENCOUNTER 2017-12-29 13:38 | Emergency (ER) | END 2017-12-29 14:04 | disposition left against medical advice (07) ==

== ENCOUNTER 2018-01-03 22:42 | Emergency (ER) | END 2018-01-03 23:46 | disposition left against medical advice (07) ==